=== PATIENT | male | born 1990 | race Hispanic/Latino ===

== ENCOUNTER 2021-07-26 00:11 | Observation (INO) | payer MEDICAID, BC ==
[2021-07-26] MEDS ORDERED: 0.9%NACL 1000ML 1,000 ML IV ONE ×2 (00:15→03:00)
[2021-07-26] MEDS ORDERED: ONDANSETRON 4MG INJ ONE ×2 (00:15→02:12)
[2021-07-26 00:59] LABS: BASOPHILS % (AUTO) 0.3 % (0.0-5.0); HEMATOCRIT 46.8 % (42-54); LYMPHOCYTES % (AUTO) 10.3 % (21.0-51.0); MEAN CORPUSCULAR HEMOGLOBIN 29.4 pg (27.0-33.0); MEAN CORPUSCULAR HGB CONC 33.3 g/dL (32.0-36.0); MEAN CORPUSCULAR VOLUME 88.1 fL (79-99); MONOCYTES % (AUTO) 2.2 % (3.0-13.0); NEUTROPHILS % (AUTO) 86.6 % (40.0-77.0); PLATELET COUNT (AUTO) 391 K/uL (130-400); RED BLOOD CELL COUNT(AUTO) 5.31 MIL/uL (4.50-6.20); RED CELL DISTRIBUTION WIDTH 14.5 % (11.0-15.5); WHITE BLOOD COUNT (AUTO) 18.7 K/uL (4.8-10.8)
[2021-07-26] MEDS ORDERED: PANTOPRAZOLE 40 MG/VIAL IVP ONE (01:00)
[2021-07-26 01:07] LABS: CREATININE 0.9 mg/dL (0.5-1.5); POTASSIUM 3.6 mmol/L (3.5-5.1)
[2021-07-26 01:11] LABS: ALBUMIN 4.1 g/dL (3.5-5.0); BILIRUBIN,TOTAL 0.7 mg/dL (0.2-1.0); TOTAL PROTEIN, SERUM 7.4 g/dL (6.0-8.3)
[2021-07-26] MEDS: SUCRALFATE 1 GM TABLET PO SCH (01:14)
[2021-07-26] MEDS ORDERED: METOCLOPRAMIDE 10 MG/2 ML VIAL ONE (02:12)
[2021-07-26] MEDS ORDERED: LIDOCAINE HCL 2% VISCOUS 15 ML UDCUP ONE (02:37)
[2021-07-26] MEDS ORDERED: DICYCLOMINE HCL 10 MG/5 ML ML PO ONE (02:37)
[2021-07-26] MEDS ORDERED: MAG/ALUM/SIMETH 30 ML UDCUP ONE (02:37)
[2021-07-26] MEDS ORDERED: HALOPERIDOL INJ 5 MG/ML VIAL IM SCH (03:00)
[2021-07-26 03:24] LABS: APPEARANCE,URINE Clear (CLEAR); BILIRUBIN,URINE Negative (NEGATIVE); COLOR,URINE Yellow (YELLOW); GLUCOSE, URINE (UA) Negative (NEGATIVE); KETONES,URINE >=160 mg/dL (NEGATIVE); LEUKOCYTE ESTERASE ,URINE Negative (NEGATIVE); NITRATE,URINE Negative (NEGATIVE); OCCULT BLOOD,URINE Negative (NEGATIVE); PH,URINE 6.5 (5.0-8.0); PROTEIN,URINE Trace mg/dL (NEGATIVE)
[2021-07-26] MEDS ORDERED: IOHEXOL 350 MG/ML 100ML INFUS..BTL IV ONE (03:29)
[2021-07-26 03:31] LABS: AMPHET/METH SCREEN,URINE NEGATIVE (NEGATIVE); BARBITURATE SCREEN, URINE NEGATIVE (NEGATIVE); BENZODIAZEPINES SCREEN,URINE NEGATIVE (NEGATIVE); CANNABINOID SCREEN,URINE POSITIVE (NEGATIVE); COCAINE SCREEN,URINE NEGATIVE (NEGATIVE); OPIATE SCREEN,URINE NEGATIVE (NEGATIVE); PHENCYCLIDINE SCREEN,URINE NEGATIVE (NEGATIVE)
[2021-07-26 03:34] LABS: BACTERIA,URINE Rare /HPF (None Seen); RBC,URINE 0-1 /HPF (0-1); WBC,URINE 0-1 /HPF (0-1)
[2021-07-26 03:35] LABS: SQUAMOUS EPITHELIAL CELL,UR 0-2 /HPF (0-2)
[2021-07-26] MEDS ORDERED: PROMETHAZINE HCL 25 MG/ML 1ML AMPULE IM ONE (05:30)
[2021-07-26] MEDS ORDERED: ZOSYN 3.375GM +NS 50ML IV SCH (05:30)
[2021-07-26] MEDS ORDERED: 0.9%NACL 1000ML 1,000 ML IV SCH (08:30)
[2021-07-26] MEDS ORDERED: DiphenhydrAMINE HCL 50 MG/ML VIAL IV ONE (08:30)
[2021-07-26] MEDS ORDERED: ONDANSETRON 4MG INJ IV PRN (08:30)
[2021-07-26] MEDS: 0.9%NACL 1000ML 1,000 ML IV SCH ×3 (09:01→20:41)
[2021-07-26 09:05] LABS: HEMATOCRIT 44.6 % (42-54); MEAN CORPUSCULAR HEMOGLOBIN 29.3 pg (27.0-33.0); MEAN CORPUSCULAR VOLUME 88.8 fL (79-99); RED BLOOD CELL COUNT(AUTO) 5.02 MIL/uL (4.50-6.20); RED CELL DISTRIBUTION WIDTH 14.6 % (11.0-15.5); WHITE BLOOD COUNT (AUTO) 17.3 K/uL (4.8-10.8)
[2021-07-26 09:27] LABS: CREATININE 0.8 mg/dL (0.5-1.5); MAGNESIUM 1.8 mg/dL (1.80-2.40); PHOSPHORUS 3.5 mg/dL (2.5-4.9); POTASSIUM 3.9 mmol/L (3.5-5.1); THYROID STIMULATING HORMONE 0.41 uIU/mL (0.36-3.74)
[2021-07-26] MEDS: PANTOPRAZOLE 40 MG/VIAL IVP SCH ×2 (09:30→20:41)
[2021-07-26 20:00] VITALS: BP 123/66
[2021-07-27] VITALS: BP 111/64
[2021-07-27] MEDS: SUCRALFATE 1 GM TABLET PO SCH (00:09)
[2021-07-27 04:33] VITALS: BP 108/60
[2021-07-27 05:12] LABS: BASOPHILS % (AUTO) 0.9 % (0.0-5.0); EOSINOPHILS % (AUTO) 0.4 % (0.0-8.0); HEMATOCRIT 39.3 % (42-54); MEAN CORPUSCULAR HEMOGLOBIN 28.7 pg (27.0-33.0); MEAN CORPUSCULAR HGB CONC 32.3 g/dL (32.0-36.0); MEAN CORPUSCULAR VOLUME 88.7 fL (79-99); MONOCYTES % (AUTO) 6.3 % (3.0-13.0); PLATELET COUNT (AUTO) 323 K/uL (130-400); RED BLOOD CELL COUNT(AUTO) 4.43 MIL/uL (4.50-6.20); RED CELL DISTRIBUTION WIDTH 14.5 % (11.0-15.5); WHITE BLOOD COUNT (AUTO) 15.5 K/uL (4.8-10.8)
[2021-07-27 05:28] LABS: CREATININE 0.8 mg/dL (0.5-1.5); POTASSIUM 4.1 mmol/L (3.5-5.1)
[2021-07-27 08:25] VITALS: BP 118/71
[2021-07-27] MEDS: PANTOPRAZOLE 40 MG/VIAL IVP SCH ×2 (08:26→20:09)
[2021-07-27] MEDS: 0.9%NACL 1000ML 1,000 ML IV SCH ×3 (11:10→17:50)
[2021-07-27 12:21] VITALS: BP 116/67
[2021-07-27 16:30] VITALS: BP 126/81
[2021-07-27 20:00] VITALS: BP 124/77
== END 2021-07-27 23:30 | disposition home or self-care (01) ==
LOC: EDH 00:11 → EDHIP 08:17 → 3DH 18:39
PROVIDERS: ADMIT Internal Medicine; ATTEND Internal Medicine
DX: R11.2 Nausea with vomiting, unspecified (principal); D72.829 Elevated white blood cell count, unspecified; E88.89 Other specified metabolic disorders; R45.851 Suicidal ideations; K52.9 Noninfective gastroenteritis and colitis, unspecified; F43.22 Adjustment disorder with anxiety; F32.A Depression, unspecified; R11.15 Cyclical vomiting syndrome unrelated to migraine; F12.10 Cannabis abuse, uncomplicated; Z90.49 Acquired absence of other specified parts of digestive tract; Z63.5 Disruption of family by separation and divorce; Z79.899 Other long term (current) drug therapy; Z98.890 Other specified postprocedural states
CPT/HCPCS: 36415 ×2; 74177; 80048; 80053; 80305; 81001; 83690; 83735; 84100; 84443; 85025 ×2; 85027; 96361 ×2; 96365; 96372; 96375; 96376 ×2; 99285; G0378 ×38; J1200; J1630; J2405 ×3; J2543; J2765; J7030 ×4; Q9967; S0164 ×5; C9113